=== PATIENT | male | born 1965 | race African-American/Black ===

== ENCOUNTER 2017-02-12 10:00 | Inpatient (IN) | payer OTHER ==
[2017-02-12 10:52] VITALS: BMI 29.5
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
[2017-02-12] MEDS ORDERED: NICOTINE POLACRILEX 2 MG GUM BUC PRN (13:47)
[2017-02-12] MEDS ORDERED: MENTHOL/PHENOL 1 EACH UD MM PRN (13:47)
[2017-02-12] MEDS ORDERED: IBUPROFEN 400 MG TABLET (FP) PO PRN (13:47)
[2017-02-12] MEDS ORDERED: ACETAMINOPHEN 325 MG TABLET (FP) PO PRN (13:47)
[2017-02-12] MEDS ORDERED: MAGNESIUM HYDROX 2400MG/30ML ORAL SUSPENSION 30 ML CUP PO PRN (13:47)
[2017-02-12] MEDS ORDERED: guaiFENesin/D-METHORPHAN HB 10 ML UNIT-DOSE CUPS PO PRN (13:47)
[2017-02-12] MEDS ORDERED: P-EPHED 60MG/TRIPROLIDI 2.5MG TABLET PO PRN (13:47)
[2017-02-12] MEDS ORDERED: chlordiazePOXIDE HCL 25 MG CAPSULE PO PRN (13:47)
[2017-02-12] MEDS ORDERED: hydrOXYzine PAMOATE 50 MG CAPSULE (FP) PO PRN (13:47)
[2017-02-12] MEDS ORDERED: MAG HYDROX/AL HYDROX/SIMETH 30 ML UNIT-DOSE CUP PO PRN (13:47)
[2017-02-12] MEDS ORDERED: MAGNESIUM CITRATE 300 ML BOTTLE PO PRN (13:47)
[2017-02-12] MEDS ORDERED: chlordiazePOXIDE HCL 25 MG CAPSULE PO ONE (13:53)
[2017-02-12] MEDS: PANTOPRAZOLE 40 MG TABLET (FP) PO SCH (14:26)
[2017-02-12] MEDS: NICOTINE 14 MG/24 HOURS TOPICAL PATCH TD SCH (14:26)
[2017-02-12] MEDS: LISINOPRIL 5 MG TABLET (FP) PO SCH (14:26)
[2017-02-12 16:08] LABS: URINE APPEARANCE CLEAR; URINE BILIRUBIN NEGATIVE (NEGATIVE); URINE BLOOD 1+ (NEGATIVE); URINE COLOR YELLOW; URINE GLUCOSE (UA) NEGATIVE (NEGATIVE); URINE KETONE 2+ (NEGATIVE); URINE LEUK ESTERASE NEGATIVE (NEGATIVE); URINE NITRITE NEGATIVE (NEGATIVE); URINE PROTEIN 1+ (NEGATIVE); URINE UROBILINOGEN NEGATIVE E.U./dl (0.2-1.0)
[2017-02-12 16:12] LABS: URINE BACTERIA RARE /hpf (NONE SEEN); URINE MUCUS RARE; URINE RBC 2 /hpf (0-3); URINE WBC 1 /hpf (3-5)
[2017-02-12] MEDS: chlordiazePOXIDE HCL 25 MG CAPSULE PO SCH ×2 (17:46→22:20)
[2017-02-12] MEDS: INSULIN (NOVOLOG) ASPART 100 UNITS/ML 10ML VIAL SQ SCH ×2 (17:47→22:42)
[2017-02-12] MEDS: THIAMINE HCL 100 MG TABLET (FP) PO SCH (22:20)
[2017-02-12] MEDS: ATORVASTATIN CA 40 MG TABLET (FP) PO SCH (22:20)
[2017-02-12] MEDS: diphenhydrAMINE HCL 50 MG CAPSULE PO PRN (22:21)
[2017-02-13] MEDS: chlordiazePOXIDE HCL 25 MG CAPSULE PO SCH ×4 (05:38→22:36)
[2017-02-13] MEDS: INSULIN (NOVOLOG) ASPART 100 UNITS/ML 10ML VIAL SQ SCH ×4 (06:16→23:07)
[2017-02-13] MEDS: NICOTINE 14 MG/24 HOURS TOPICAL PATCH TD SCH (10:23)
[2017-02-13] MEDS: LISINOPRIL 5 MG TABLET (FP) PO SCH (10:23)
[2017-02-13] MEDS: PRENATAL VITAMINS W/ FOLIC ACID TABLET (FP) PO SCH (10:23)
[2017-02-13] MEDS: PANTOPRAZOLE 40 MG TABLET (FP) PO SCH (10:23)
--- NOTE | 2017-02-13 10:55 | PN ---
S CIWA - CIWA Score Nausea/Vomitin Muscle Tremors: 2 Anxiety: 3 Agitation: 2 Paroxysmal Sweats: 3 Orientation: 0-Oriented Tacttile Disturbances: 2-Mild Itch/Numbness/Burn Auditory Disturbances: 0-None Visual Disturbances: 0-None Headache: 0-None Present CIWA-Ar Total Score: 14 S Progress Note (SOAP) Subjective: INTERRUPTED SLEEP, SWEATS, DIARRHEA, ITCHY BUMPS ON BUTTOCKS Objective: 02/13/17 10:51 Vital Signs Temperature 97.5 F L 02/13/17 09:38 Pulse Rate 77 02/13/17 09:38 Respiratory Rate 16 02/13/17 09:38 Blood Pressure 131/88 02/13/17 09:38 O2 Sat by Pulse Oximetry (%) Laboratory Tests 02/12/17 02/12/17 02/12/17 12:39 15:55 16:28 POC Glucometer 132 173 Urine Color Yellow Urine Appearance Clear Urine pH 5.0 D Ur Specific [place] 1.025 Urine Protein 1+ H Urine Glucose (UA) Negative Urine Ketones 2+ H Urine Blood 1+ H Urine Nitrite Negative Urine Bilirubin Negative Urine Urobilinogen Negative Ur Leukocyte Esterase Negative Urine RBC 2 Urine WBC 1 Urine Bacteria Rare Urine Mucus Rare 02/13/17 05:37 POC Glucometer 101 Urine Color Urine Appearance Urine pH Ur Specific [place] Urine Protein Urine Glucose (UA) Urine Ketones Urine Blood Urine Nitrite Urine Bilirubin Urine Urobilinogen Ur Leukocyte Esterase Urine RBC Urine WBC Urine Bacteria Urine Mucus PENDING LABS PT AOX03 IN NAD , BUTTOCKS PAPULES BUTTOCKS CHRISTINE Assessment: 02/13/17 10:53 WITHDRAWAL SX'S RASH Plan: CONT. DETOX INCREASE FLUIDS BENADRYL 25MG Q 6H HYDROCORTISONE CREAM BIS
[2017-02-13] MEDS ORDERED: INSULIN (NOVOLOG) ASPART 100 UNITS/ML 10ML VIAL ONE ×2 (11:36→16:59)
[2017-02-13] MEDS: diphenhydrAMINE HCL 25 MG CAPSULE (FP) PO PRN ×2 (11:59→22:37)
[2017-02-13] MEDS: HYDROCORTISONE 1% TOPICAL CREAM 30 GM TUBE TP PRN (11:59)
[2017-02-13 12:10] LABS: MCH 30.9 pg (25.7-33.7); MCHC 33.7 g/dl (32.0-35.9); MEAN CELL VOLUME 91.7 fl (80-96); MEAN PLT VOLUME 9.3 fl (7.5-11.1); PLATELET COUNT 205 K/MM3 (134-434); RDW 16.1 % (11.9-15.9); WHITE BLOOD COUNT 9.2 K/mm3 (4.0-10.0)
[2017-02-13 12:27] LABS: ALBUMIN 3.4 g/dl (3.4-5.0); ALK PHOS 81 U/L (45-117); ANION GAP 10 (8-16); BILIRUBIN,TOTAL 0.5 mg/dL (0.2-1.0); CALCIUM 8.7 mg/dL (8.5-10.1); CO2 27 mmol/L (21-32); COCKROFT - GAULT 109.61; GLUCOSE,RANDOM 117 mg/dL (74-106); SGOT/AST 41 U/L (15-37); SGPT/ALT 26 U/L (12-78); TOT PROT 6.4 g/dl (6.4-8.2)
[2017-02-13 12:31] LABS: HIV 1 & 2 AB NEGATIVE; HIV 1 AGp24 NEGATIVE
--- NOTE | 2017-02-13 14:23 | EKG ---
Test Reason : Blood Pressure : / mmHG Vent. Rate : 063 BPM Atrial Rate : 063 BPM P-R Int : 120 ms QRS Dur : 082 ms QT Int : 434 ms P-R-T Axes : 046 -04 050 degrees QTc Int : 444 ms NORMAL SINUS RHYTHM NORMAL ECG NO PREVIOUS ECGS AVAILABLE Confirmed by CORBY COLLADO MD ([id number]) on 02/13/2017 2:22:38 PM Referred By: Confirmed By:CORBY COLLADO MD
--- NOTE | 2017-02-13 14:24 | CONSULT ---
[facility] Psychiatric Consult - Data Date of interview: 02/13/17 Admission source: [facility] Identifying data: Another admission to [facility] for this 51 y/o AA male seeking detox treatment for alcohol,cannabis and cocaine dependence.Patient is ,a father of one,domiciled,unemployed and supported on SSI benefits. Substance Abuse History: - Smoking Cessation. Smoking history: Current every day smoker. Have you smoked in the past 12 months: Yes. Aproximately how many cigarettes per day: 7. Hx Chewing Tobacco Use: No. Initiated information on smoking cessation: Yes. 'Breaking Loose' booklet given: 02/12/17. - Substance & Tx. History. Hx Alcohol Use: Yes. Hx Substance Use: Yes. Substance Use Type : Alcohol, Cocaine, Marijuana. Hx Substance Use Treatment: Yes (Detox). - Substances Abused. Alcohol. Route: Oral. Frequency: Daily. Amount used: vodka(2-3 pints)/beer(6-12oz bottles). Age of first use: 8. Date of Last Use : 02/11/17. Cocaine. Route: Inhalation. Frequency: Daily. Amount used: $ 300. Age of first use: 19. Date of Last Use: 02/11/17. Marijuana/Hashish. Route: Smoking. Frequency: Daily. Amount used: 1 DIME BAGS. Age of first use: 13. Date of Last Use: 02/11/17. Confirmed by patient. Medical History: Diabetes mellitus,hypercholesterolemia and a history of multiple surgeries (laparoscopic exploratory laparotomy for intestinal obstruction,orthosurgery for fracture of left lower mandible ; left inguinal herniorraphy). Psychiatric History: Patient admits to a history of multiple psychiatric hospitalizations.He is known to [facility] and [facility].Previous records indicate that the first psychiatric breakdown occurred in 2002 and warranted a 4 month stay at [facility].Patient continues to get his psychiatric OPD treatment at [facility] under the care of Dr Vasquez.Maintained on a regimen of : celexa 20 mg/day + seroquel 200 mg/day and 400 mg/hs + xanax 2 mg/day.Mr Deborah MUIR reports a history of one suicide attempt (serious) via self- inflicted laceration of left foream/wrist in 2005. Physical/Sexual Abuse/Trauma History: Patient denies. Additional Comment: Urine Drug Screen Results: THC-Marijuana, TETE-Cocaine, BZO- Benzodiazepines.Noted. Mental Status Exam - Mental Status Exam Alert and Oriented to: Time, Place, Person Cognitive Function: Good Patient Appearance: Well Groomed Mood: Withdrawn (neutral ) Affect: Appropriate, Normal Range Patient Behavior: Fatigued, Cooperative Speech Pattern: Clear Voice Loudness: Normal Thought Process: Goal Oriented Thought Disorder: Not Present Hallucinations: Denies Suicidal Ideation: Denies Homicidal Ideation: Denies Insight/Judgement: Poor Sleep: Poorly, Difficulty falling asleep Appetite: Good Muscle strength/Tone: Normal Gait/Station: Normal Psychiatric Findings - Problem List ([place] 1, 2,3) (1) Alcohol dependence with uncomplicated withdrawal Current Visit: Yes Status: Acute (2) Cannabis dependence Current Visit: Yes Status: Acute (3) Cocaine dependence Current Visit: Yes Status: Acute Qualifiers: Substance use status: uncomplicated Qualified Code(s): F14.20 - Cocaine dependence, uncomplicated (4) Nicotine dependence Current Visit: Yes Status: Acute Qualifiers: Nicotine product type: cigarettes Substance use status: uncomplicated Qualified Code(s): F17.210 - Nicotine dependence, cigarettes, uncomplicated (5) Schizoaffective disorder Current Visit: Yes Status: Chronic (6) Type II diabetes mellitus Current Visit: Yes Status: Chronic Qualifiers: Diabetes mellitus complication status: without complication Diabetes mellitus group home insulin use: without group home use Qualified Code(s): E11.9 - Type 2 diabetes mellitus without complications (7) Hypercholesterolemia Current Visit: Yes Status: Chronic (8) Obesity Current Visit: Yes Status: Chronic Qualifiers: Obesity type: unspecified obesity type Obesity severity: unspecified obesity severity Qualified Code(s): E66.9 - Obesity, unspecified (9) Insomnia Current Visit: Yes Status: Acute - Initial Treatment Plan Initial Treatment Plan: Psychoeducation.Detoxification.Medications : celexa 20 mg po daily + seroquel 200 mg po bid.Side effects/benefits of theses medications are discussed with the patient.He is in agreement with this careplan.Observation.
[2017-02-13] MEDS: ATORVASTATIN CA 40 MG TABLET (FP) PO SCH (22:37)
[2017-02-13] MEDS: QUEtiapine FUMARATE 200 MG TABLET PO SCH (22:37)
[2017-02-13] MEDS: LOPERAMIDE HCL 2 MG CAPSULE PO PRN (23:00)
[2017-02-13] MEDS: THIAMINE HCL 100 MG TABLET (FP) PO SCH (23:07)
[2017-02-14] MEDS: chlordiazePOXIDE HCL 25 MG CAPSULE PO SCH ×2 (06:31→10:43)
[2017-02-14] MEDS: INSULIN (NOVOLOG) ASPART 100 UNITS/ML 10ML VIAL SQ SCH ×4 (07:20→22:12)
[2017-02-14] MEDS: NICOTINE 14 MG/24 HOURS TOPICAL PATCH TD SCH (10:43)
[2017-02-14] MEDS: CITALOPRAM HYDROBROMIDE 20 MG TABLET (FP) PO SCH (10:43)
[2017-02-14] MEDS: PRENATAL VITAMINS W/ FOLIC ACID TABLET (FP) PO SCH (10:43)
[2017-02-14] MEDS: LISINOPRIL 5 MG TABLET (FP) PO SCH (10:43)
[2017-02-14] MEDS: PANTOPRAZOLE 40 MG TABLET (FP) PO SCH (10:43)
[2017-02-14] MEDS: QUEtiapine FUMARATE 200 MG TABLET PO SCH ×2 (10:43→22:11)
[2017-02-14] MEDS: diphenhydrAMINE HCL 25 MG CAPSULE (FP) PO PRN ×2 (10:46→19:06)
--- NOTE | 2017-02-14 11:03 | PN ---
[facility] CIWA - CIWA Score Nausea/Vomitin-No Nausea/No Vomiting Muscle Tremors: 3 Anxiety: 3 Agitation: 3 Paroxysmal Sweats: 3 Orientation: 0-Oriented Tacttile Disturbances: 0-None Auditory Disturbances: 0-None Visual Disturbances: 0-None Headache: 0-None Present CIWA-Ar Total Score: 12 S Progress Note (SOAP) Subjective: diarrhea sweats irritable agitation Objective: 02/14/17 11:00 Vital Signs Temperature 97.3 F L 02/14/17 10:00 Pulse Rate 86 02/14/17 10:00 Respiratory Rate 18 02/14/17 10:00 Blood Pressure 103/70 02/14/17 10:00 O2 Sat by Pulse Oximetry (%) Laboratory Tests 02/12/17 02/12/17 02/12/17 12:39 15:55 16:28 WBC RBC Hgb Hct MCV MCHC RDW Plt Count MPV Sodium Potassium Chloride Carbon Dioxide Anion Gap BUN Creatinine Creat Clearance w eGFR POC Glucometer 132 173 Random Glucose Calcium Total Bilirubin AST ALT Alkaline Phosphatase Total Protein Albumin Urine Color Yellow Urine Appearance Clear Urine pH 5.0 D Ur Specific [place] 1.025 Urine Protein 1+ H Urine Glucose (UA) Negative Urine Ketones 2+ H Urine Blood 1+ H Urine Nitrite Negative Urine Bilirubin Negative Urine Urobilinogen Negative Ur Leukocyte Esterase Negative Urine RBC 2 Urine WBC 1 Urine Bacteria Rare Urine Mucus Rare RPR Titer HIV 1&2 Antibody Screen HIV P24 Antigen 02/13/17 02/13/17 02/13/17 05:37 07:00 07:00 WBC 9.2 RBC 4.23 Hgb 13.1 Hct 38.8 MCV 91.7 MCHC 33.7 RDW 16.1 H Plt Count 205 MPV 9.3 Sodium Potassium Chloride Carbon Dioxide Anion Gap BUN Creatinine Creat Clearance w eGFR POC Glucometer 101 Random Glucose Calcium Total Bilirubin AST ALT Alkaline Phosphatase Total Protein Albumin Urine Color Urine Appearance Urine pH Ur Specific [place] Urine Protein Urine Glucose (UA) Urine Ketones Urine Blood Urine Nitrite Urine Bilirubin Urine Urobilinogen Ur Leukocyte Esterase Urine RBC Urine WBC Urine Bacteria Urine Mucus RPR Titer HIV 1&2 Antibody Screen Negative HIV P24 Antigen Negative 02/13/17 02/13/17 02/13/17 07:00 07:00 11:23 WBC RBC Hgb Hct MCV MCHC RDW Plt Count MPV Sodium 141 Potassium 3.8 Chloride 104 Carbon Dioxide 27 Anion Gap 10 BUN 10 D Creatinine 1.0 D Creat Clearance w eGFR > 60 POC Glucometer 159 Random Glucose 117 H Calcium 8.7 Total Bilirubin 0.5 D AST 41 H D ALT 26 Alkaline Phosphatase 81 Total Protein 6.4 Albumin 3.4 Urine Color Urine Appearance Urine pH Ur Specific [place] Urine Protein Urine Glucose (UA) Urine Ketones Urine Blood Urine Nitrite Urine Bilirubin Urine Urobilinogen Ur Leukocyte Esterase Urine RBC Urine WBC Urine Bacteria Urine Mucus RPR Titer Nonreactive HIV 1&2 Antibody Screen HIV P24 Antigen 02/13/17 02/13/17 02/14/17 16:38 22:53 06:28 WBC RBC Hgb Hct MCV MCHC RDW Plt Count MPV Sodium Potassium Chloride Carbon Dioxide Anion Gap BUN Creatinine Creat Clearance w eGFR POC Glucometer 168 97 106 Random Glucose Calcium Total Bilirubin AST ALT Alkaline Phosphatase Total Protein Albumin Urine Color Urine Appearance Urine pH Ur Specific [place] Urine Protein Urine Glucose (UA) Urine Ketones Urine Blood Urine Nitrite Urine Bilirubin Urine Urobilinogen Ur Leukocyte Esterase Urine RBC Urine WBC Urine Bacteria Urine Mucus RPR Titer HIV 1&2 Antibody Screen HIV P24 Antigen awake/alert ambulating no acute distress Assessment: 02/14/17 11:02 withdrawal sx Plan: continue detox increase fluids immodium prn
[2017-02-14] MEDS: chlordiazePOXIDE 5 MG CAPSULE PO SCH ×2 (17:15→22:10)
[2017-02-14] MEDS: HYDROCORTISONE 1% TOPICAL CREAM 30 GM TUBE TP PRN (19:08)
[2017-02-14] MEDS: ATORVASTATIN CA 40 MG TABLET (FP) PO SCH (22:10)
[2017-02-14] MEDS: THIAMINE HCL 100 MG TABLET (FP) PO SCH (22:11)
[2017-02-14] MEDS: LOPERAMIDE HCL 2 MG CAPSULE PO PRN (23:01)
[2017-02-15] MEDS: chlordiazePOXIDE 5 MG CAPSULE PO SCH ×3 (06:36→10:52)
[2017-02-15] MEDS: INSULIN (NOVOLOG) ASPART 100 UNITS/ML 10ML VIAL SQ SCH ×4 (07:10→22:36)
[2017-02-15] MEDS ORDERED: diphenhydrAMINE HCL 50 MG CAPSULE PO ONE (09:47)
[2017-02-15] MEDS: LISINOPRIL 5 MG TABLET (FP) PO SCH (09:56)
[2017-02-15] MEDS: QUEtiapine FUMARATE 200 MG TABLET PO SCH ×2 (09:56→22:09)
[2017-02-15] MEDS: PANTOPRAZOLE 40 MG TABLET (FP) PO SCH (09:56)
[2017-02-15] MEDS: PRENATAL VITAMINS W/ FOLIC ACID TABLET (FP) PO SCH (09:56)
[2017-02-15] MEDS: CITALOPRAM HYDROBROMIDE 20 MG TABLET (FP) PO SCH (09:56)
[2017-02-15] MEDS: NICOTINE 14 MG/24 HOURS TOPICAL PATCH TD SCH (10:53)
[2017-02-15] MEDS: CEPHALEXIN MONOHYDRATE 500 MG CAPSULE (UD) PO SCH ×2 (11:21→17:22)
--- NOTE | 2017-02-15 12:09 | PN ---
S Progress Note (SOAP) Subjective: ALERT,IRRITABLE,ANXIOUS,INTERRUPTED SLEEP,ITCHING WITH FURUNCULITIS BOTH BUTTOCKS Objective: 02/15/17 12:07 Vital Signs Temperature 97.3 F L 02/15/17 09:51 Pulse Rate 85 02/15/17 09:51 Respiratory Rate 20 02/15/17 09:51 Blood Pressure 104/67 02/15/17 09:51 O2 Sat by Pulse Oximetry (%) Assessment: 02/15/17 12:07 WITHDRAWAL SYMPTOM Plan: CONTINUE DETOX,KEFLEX 500 MGS PO Q6HRS,LIDEX CREAM,BGM 142,BGM MONITORING, DISCHARGE IN AM
[2017-02-15] MEDS: FLUOCINONIDE 0.05% CREAM (60 GM TUBE) TP SCH ×2 (12:24→22:35)
[2017-02-15] MEDS ORDERED: INSULIN (NOVOLOG) ASPART 100 UNITS/ML 10ML VIAL ONE (17:13)
[2017-02-15] MEDS: chlordiazePOXIDE HCL 10 MG CAPSULE PO SCH ×2 (17:23→22:08)
[2017-02-15] MEDS: ATORVASTATIN CA 40 MG TABLET (FP) PO SCH (22:08)
[2017-02-15] MEDS: diphenhydrAMINE HCL 50 MG CAPSULE PO PRN (22:09)
[2017-02-15] MEDS: THIAMINE HCL 100 MG TABLET (FP) PO SCH (22:09)
[2017-02-16] MEDS: CEPHALEXIN MONOHYDRATE 500 MG CAPSULE (UD) PO SCH ×2 (01:44→06:04)
[2017-02-16] MEDS: chlordiazePOXIDE HCL 10 MG CAPSULE PO SCH (06:04)
[2017-02-16] MEDS: INSULIN (NOVOLOG) ASPART 100 UNITS/ML 10ML VIAL SQ SCH (07:58)
--- NOTE | 2017-02-16 08:26 | PN ---
S Progress Note (SOAP) Subjective: ALERT,NO COMPLAINT Objective: 02/16/17 08:24 Vital Signs Temperature 98.2 F 02/16/17 06:44 Pulse Rate 66 02/16/17 06:44 Respiratory Rate 18 02/16/17 06:44 Blood Pressure 110/62 02/16/17 06:44 O2 Sat by Pulse Oximetry (%) BGM 138 Assessment: 02/16/17 08:24 DETOX COMPLETED,NO WITHDRAWAL SYMPTOM Plan: DISCHARGE TODAY,FOLLOW UP WITH AFTER CARE PROGRAM ARRANGEMENT AND PMD FOR MEDICAL PROBLEM
--- NOTE | 2017-02-16 08:30 | DS ---
[facility] Detox Discharge Summary Admission Date: 02/12/17 Discharge Date: 02/16/17 - History Present History: Alcohol Dependence, Cannabis Dependence, Cocaine Dependence Additional Comments: FOLLOW UP WITH AFTER CARE PROGRAM ARRANGEMENT AND PMD FOR MEDICAL PROBLEM Pertinent Past History: HYPERCHOLESTEROLEMIA TYPE 2 DM FURUNCULITIS - Physical Exam Results Vital Signs: Vital Signs Temperature 98.2 F 02/16/17 06:44 Pulse Rate 66 02/16/17 06:44 Respiratory Rate 18 02/16/17 06:44 Blood Pressure 110/62 02/16/17 06:44 O2 Sat by Pulse Oximetry (%) Pertinent Admission Physical Exam Findings: WITHDRAWAL SYMPTOM - Treatment Hospital Course: Detox Protocol Followed, Detoxed Safely, Responded well, Discharged Condition Good, Rehab Referral Accepted Patient has Accepted a Rehab Referral to: [facility] - Medication Discharge Medications: Ambulatory Orders Pantoprazole Sodium [Protonix -] 40 mg PO DAILY #30 tablet.ec 05/22/14 Metformin HCl [Glucophage -] 850 mg PO BID 01/17/16 Citalopram Hydrobromide [Celexa -] 20 mg PO DAILY #30 tablet 01/18/16 Quetiapine Fumarate [Seroquel -] 200 mg PO DAILY #30 tab 01/18/16 Quetiapine Fumarate [Seroquel -] 600 mg PO HS 02/12/17 Simvastatin 40 mg PO HS 02/12/17 - AMA Did Patient Leave Against Medical Advice: No
[2017-02-16] MEDS: PANTOPRAZOLE 40 MG TABLET (FP) PO SCH (09:34)
[2017-02-16] MEDS: LISINOPRIL 5 MG TABLET (FP) PO SCH (09:34)
[2017-02-16] MEDS: PRENATAL VITAMINS W/ FOLIC ACID TABLET (FP) PO SCH (09:34)
[2017-02-16] MEDS: CITALOPRAM HYDROBROMIDE 20 MG TABLET (FP) PO SCH (09:34)
[2017-02-16 10:04] VITALS: BP 96/66; PULSE 87; TEMP 97.2
== END 2017-02-16 09:59 | disposition home or self-care (01) | DRG 774 ==
LOC: YASAS 10:00 → Y6N 13:43
PROVIDERS: ADMIT Internal Medicine Addiction Medicine; ATTEND Internal Medicine Addiction Medicine
PROC: HZ2ZZZZ Detoxification Services for Substance Abuse Treatment (ICD-10-PCS; principal; 2017-02-16)
DX: F10.230 Alcohol dependence with withdrawal, uncomplicated (principal); F14.20 Cocaine dependence, uncomplicated; F12.20 Cannabis dependence, uncomplicated; F17.210 Nicotine dependence, cigarettes, uncomplicated; F31.9 Bipolar disorder, unspecified; F25.9 Schizoaffective disorder, unspecified; G47.00 Insomnia, unspecified; E11.9 Type 2 diabetes mellitus without complications; Z79.84 Long term (current) use of oral hypoglycemic drugs; E78.00 Pure hypercholesterolemia, unspecified; R63.4 Abnormal weight loss; Z68.34 Body mass index [BMI] 34.0-34.9, adult; Z59.0 Homelessness
CPT/HCPCS: 36415; 80053; 81003; 81015; 85027; 86593; 87389; 93005; 93010